=== PATIENT | female | born 1990 ===

== ENCOUNTER 2016-11-08 17:02 | Inpatient (IN) | payer BC ==
[2016-11-08] VITALS (25 sets, daily range): BP systolic 126–155; BP diastolic 74–95; PULSE 76–127; TEMP 98–98.2
[~2016-11-08] VITALS: Ht 167.7 cm; Wt 108.2 kg
[2016-11-08] MEDS ORDERED: ZOLOFT 50MG50 MG PO (17:21)
[2016-11-08] MEDS ORDERED: PRENATAL MVI (17:21)
[2016-11-08 18:10] LABS: BASO % 0.2 % (0.0-2.0); EOS # 0.1 (0.0-0.7); EOS % 0.7 % (0-4.0); GRAN # 8.4 (1.4-6.5); GRAN % 75.2 % (42.2-75.2); HEMATOCRIT 37.4 % (37.0-47.0); HEMOGLOBIN 12.9 g/dl (12.5-16.0); LYMPH # 1.9 (1.2-3.4); MEAN CELL VOLUME 85 fl (80.0-100.0); MEAN CORPUSCULAR HEMOGLOBIN 29 pg (27.0-31.0); MEAN CORPUSCULAR HGB CONC 35 g/dl (33.0-37.0); MEAN PLATELET VOLUME 13.1 fl (7.4-10.4); MONO # 0.7 (0.1-0.6); MONO % 6.5 % (1.7-9.3); PLATELET COUNT 208 K/mm3 (130-400); RED BLOOD COUNT 4.39 M/mm3 (4.10-5.30); REDCELL DISTRIBUTION WIDTH-CV 12.7 % (11.5-14.5); WHITE BLOOD COUNT 11.2 K/mm3 (4.8-10.8)
[2016-11-08 18:52] LABS: ADJUSTED CALCIUM 9.6 mg/dL (8.4-10.2); ALBUMIN 3.4 gm/dL (3.5-5.0); BILIRUBIN,TOTAL 0.6 mg/dL (0.0-1.0); CALCIUM 9.1 mg/dL (8.4-10.2); CREATININE, serum 0.6 mg/dL (0.52-1.25); POTASSIUM 3.9 mmol/L (3.4-5.0); TOTAL PROTEIN 7.1 gm/dL (6.4-8.2)
[2016-11-09] VITALS (79 sets, daily range): BP systolic 100–179; BP diastolic 52–114; PULSE 71–131; TEMP 97.9–99.7
[2016-11-10 03:07] VITALS: BP 107/60; PULSE 110; TEMP 98.1
[2016-11-10 07:51] VITALS: BP 126/79; PULSE 102; TEMP 98
[2016-11-10 08:18] LABS: BASO # 0.1 (0.0-0.2); BASO % 0.4 % (0.0-2.0); EOS # 0.1 (0.0-0.7); EOS % 0.4 % (0-4.0); GRAN # 15.9 (1.4-6.5); GRAN % 84.8 % (42.2-75.2); LYMPH # 1.5 (1.2-3.4); MEAN CELL VOLUME 89 fl (80.0-100.0); MEAN CORPUSCULAR HGB CONC 34 g/dl (33.0-37.0); MEAN PLATELET VOLUME 12.3 fl (7.4-10.4); MONO # 1.1 (0.1-0.6); MONO % 5.8 % (1.7-9.3); PLATELET COUNT 172 K/mm3 (130-400); RED BLOOD COUNT 3.64 M/mm3 (4.10-5.30); REDCELL DISTRIBUTION WIDTH-CV 13.2 % (11.5-14.5); WHITE BLOOD COUNT 18.7 K/mm3 (4.8-10.8)
[2016-11-10 08:20] LABS: HEMATOCRIT 32.2 % (37.0-47.0); HEMOGLOBIN 10.8 g/dl (12.5-16.0); MEAN CORPUSCULAR HEMOGLOBIN 30 pg (27.0-31.0)
[2016-11-10 16:24] VITALS: BP 128/86; PULSE 104; TEMP 98
[2016-11-10 19:45] VITALS: BP 113/73; PULSE 106; TEMP 98.1
[2016-11-11 06:45] VITALS: BP 125/73; PULSE 90; TEMP 97.7
[2016-11-11] MEDS ORDERED: MOTRIN 800800 MG/TAB PO (07:14)
[2016-11-11] MEDS ORDERED: PERCOCET 325 MG1 TA2 PO (07:14)
[2016-11-11 15:50] VITALS: BP 130/63; PULSE 102; TEMP 98.2
[2016-11-11 20:00] VITALS: BP 132/89; PULSE 99; TEMP 98.5
[2016-11-12 09:30] VITALS: BP 136/82; PULSE 74; TEMP 98.1
== END 2016-11-12 11:30 | disposition home or self-care (01) | DRG 765 ==
LOC: LDRO 17:02 → LDR 17:32 → OB 17:32
PROVIDERS: Obstetrics & Gynecology
PROC: 10D00Z1 Extraction of Products of Conception, Low, Open Approach (ICD-10-PCS; principal; 2016-11-09)
DX: O99.824 Streptococcus B carrier state complicating childbirth (principal); O13.3 Gestational [pregnancy-induced] hypertension without significant proteinuria, third trimester; O62.1 Secondary uterine inertia; O69.2XX0 Labor and delivery complicated by other cord entanglement, with compression, not applicable or unspecified; Z3A.39 39 weeks gestation of pregnancy; Z37.0 Single live birth
CPT/HCPCS: J0595; J0690; J1885; J2175; J2270; J2370; J2400; J2405; J2540; J2590; J3010; J7120

== ENCOUNTER 2020-01-07 13:34 | Inpatient (IN) | payer BC ==
[~2020-01-07] VITALS: Ht 167.7 cm; Wt 105.9 kg
[~2020-01-07 13:34] MED LIST: MOTRIN 800800 MG/TAB PO; PERCOCET 325 MG1 TA2 PO; PRENATAL MVI; ZOLOFT 50MG50 MG PO
[2020-01-08] VITALS (18 sets, daily range): BP systolic 102–152; BP diastolic 62–99; PULSE 71–97; TEMP 97.9–98.7
--- NOTE | 2020-01-08 07:15 | NUR ---
Patient ambulates to room with spouse, changed into gown, FHR/TOCO monitors placed. Patient states she has been feeling some fran hick contractions, denies any regular contractions/leaking of fluid/vaginal bleeding/decreased movement. Plan of care discussed. 0730: IV started in left hand, blood obtained and to lab, LR infusing. Assessment completed and consents gone over and signed. packet given. Patient prepped for .
[2020-01-08] MEDS ORDERED: ZOLOFT 50MG50 MG PO (07:38)
[2020-01-08] MEDS ORDERED: PEPCID 20MG TAB20 MG PO (07:39)
[2020-01-08] MEDS ORDERED: UNISOM25 MG PO (07:39)
[2020-01-08] MEDS ORDERED: TUMS500 MG (07:39)
[2020-01-08 07:55] LABS: BASO # 0.1 (0.0-0.2); BASO % 0.4 % (0.0-2.0); EOS # 0.1 (0.0-0.7); GRAN # 10.8 (1.4-6.5); GRAN % 79.6 % (42.2-75.2); HEMATOCRIT 39.7 % (37.0-47.0); HEMOGLOBIN 13.6 g/dl (12.5-16.0); LYMPH # 1.7 (1.2-3.4); LYMPH % 12.7 % (20.0-51.0); MEAN CELL VOLUME 87 fl (80.0-100.0); MEAN CORPUSCULAR HEMOGLOBIN 30 pg (27.0-31.0); MEAN CORPUSCULAR HGB CONC 34 g/dl (33.0-37.0); MEAN PLATELET VOLUME 13.3 fl (7.4-10.4); MONO # 0.8 (0.1-0.6); MONO % 5.7 % (1.7-9.3); PLATELET COUNT 196 K/mm3 (130-400); RED BLOOD COUNT 4.57 M/mm3 (4.10-5.30); REDCELL DISTRIBUTION WIDTH-CV 13.2 % (11.5-14.5)
[2020-01-08] MEDS ORDERED: PERCOCET 325 MG1 TA2 PO (09:06)
[2020-01-08] MEDS ORDERED: MOTRIN 800800 MG/TAB PO (09:06)
--- NOTE | 2020-01-08 15:30 | NUR ---
Patient sitting on edge of bed with feet dangling. Patient ambulates to bathroom and rogers catheter removed and patient tolerates well. Pericare done/new gown/underwear/pad on. Abdominal binder placed. Patient ambulates in vigil.
[2020-01-09] VITALS: BP 125/73; PULSE 83; TEMP 98.2
[2020-01-09 08:00] VITALS: BP 145/89; PULSE 62; TEMP 97.9
[2020-01-09 16:19] VITALS: BP 141/103; PULSE 93; TEMP 98.1
[2020-01-09 17:31] VITALS: BP 125/64; PULSE 74
[2020-01-09 20:40] VITALS: BP 145/94; PULSE 89; TEMP 98.5
[2020-01-10 00:10] VITALS: BP 120/69; PULSE 85
[2020-01-10 07:50] VITALS: BP 153/92; PULSE 77; TEMP 98.1
--- NOTE | 2020-01-10 08:09 | NUR ---
0745 PT SITTING UP IN BED HOLDING INFANT IN LAP. BP AT THIS TIME IS 165/103 WITH ADULT BLUE CUFF ON RLA. PT DENIES DIZZINES, HEADACHE, BLURRED VISION. REPORTS "FEELS FINE". 800MG MOTRIN GIVEN AT THIS TIME. 0750 BP REASSESSED ON ASHLYN USING RED ADULT CUFF. 153/92, HR 77
--- NOTE | 2020-01-10 08:16 | NUR ---
PT STATES SHE USES OWN [employer]OFT BUT TAKES IT AT NIGHT. ZOLOFT NOT GIVEN ON THIS SHIFT.
[2020-01-10] MEDS ORDERED: NORMODYNE100 MG PO (08:35)
[2020-01-10 10:31] VITALS: BP 139/91; PULSE 74
== END 2020-01-10 11:00 | disposition home or self-care (01) | DRG 788 ==
LOC: OB 01-08 07:14 → LDR 01-08 11:53 → OB 01-10 11:00
PROVIDERS: ADMIT Obstetrics & Gynecology
PROC: 10D00Z1 Extraction of Products of Conception, Low, Open Approach (ICD-10-PCS; principal; 2020-01-08)
DX: O99.214 Obesity complicating childbirth (principal); O99.824 Streptococcus B carrier state complicating childbirth; O99.344 Other mental disorders complicating childbirth; F41.9 Anxiety disorder, unspecified; E66.9 Obesity, unspecified; O34.211 Maternal care for low transverse scar from previous cesarean delivery; K58.9 Irritable bowel syndrome, unspecified; K21.9 Gastro-esophageal reflux disease without esophagitis; O99.62 Diseases of the digestive system complicating childbirth; Z3A.39 39 weeks gestation of pregnancy; Z37.0 Single live birth
CPT/HCPCS: J0690; J1885; J2175; J2370; J2405; J2590; J3010; J7120